=== PATIENT | male | born 1985 | race Caucasian/White ===

== ENCOUNTER 2021-01-08 13:59 | Emergency (ER) | payer OTHER, SELFPAY ==
--- NOTE | ~2021-01-08 | XR_ITS ---
EXAMINATION: XR abdomen/kub 1V DATE: 01/08/2021 16:01 INDICATION: Low abdominal pain. TECHNIQUE: A supine view of the abdomen on 2 radiographs was obtained. COMPARISON: None. FINDINGS: There are no dilated loops of bowel. There is a moderate volume of stool in the colon. Ther e is no visible urolithiasis. IMPRESSION: 1. Normal bowel gas pattern. Reviewed, dictated and finalized at location A.
[2021-01-08 14:13] VITALS: BP 135/57; PULSE 90; RESP 20; TEMP 37.2; O2SAT 99
--- NOTE | 2021-01-08 15:19 | ED.GENADULT ---
HPI - General Adult General Chief complaint: Urogenital-Male Stated complaint: testicular discomfort Time Seen by Provider: 01/08/21 15:19 Source: patient Mode of arrival: ambulatory Limitations: no limitations History of Present Illness HPI narrative: 35-year-old male patient presents to the [facility] with complaints of scrotal discomfort for the past 3 days. Denies any penile discharge or pain with urination. Denies any concerns for STDs or STIs. Patient states he is in a monogamous relationship. Patient denies any low back pain, fevers, body aches or chills. Denies any nausea, vomiting or diarrhea. Patient states he does have pain to the suprapubic area that radiates down both sides of the groin into the scrotum. Related Data Home Medications Medication Instructions Recorded Confirmed bupropion HCl 100 mg PO BID 01/08/21 01/08/21 citalopram 20 mg PO DAILY 01/08/21 01/08/21 Allergies Allergy/AdvReac Type Severity Reaction Status Date / Time No Known Allergies Allergy Verified 01/08/21 14:22 Review of Systems Review of Systems: Narrative: CONSTITUTIONAL: Denies fever, chills, or sweats. EYES: Denies visual changes, redness, or discharge. ENT: Denies rhinorrhea, congestion, sore throat, or otalgia. CARDIOVASCULAR: Denies chest pain, palpitations, or edema. RESPIRATORY: Denies cough or dyspnea. GASTROINTESTINAL: Denies abdominal pain, nausea, vomiting, or diarrhea. GENITOURINARY: Denies dysuria or hematuria. Positive bilateral scrotal pain more so to the right than the left SKIN: Denies rash or itching. MUSCULOSKELETAL: Denies back pain, joint pain, or myalgia. NEUROLOGIC: Denies headache, numbness, or weakness. PSYCHIATRIC: Denies anxiety or depression. PMFSH Comments At the time of my signature I agree with nursing past medical history, surgical, social, and family history. There is no relevant family history pertinent to the presenting complaint. Exam Narrative: Exam Narrative: GENERAL: Well-appearing, well-nourished, and in no acute distress. HEAD: Normocephalic, atraumatic. EYES: PERRLA and EOMI. ENT: Nares clear, no rhinorrhea or epistaxis. Mucous membranes moist. NECK: Supple. No lymphadenopathy CHEST: Clear to auscultation. No respiratory distress. HEART: Regular rate and rhythm. No murmur heard. Normal peripheral pulses. ABDOMEN: Soft, nontender, nondistended, normal active bowel sounds. EXTREMITIES: Normal range of motion. No edema. : Normal external genitalia, uncircumcised male. No lesions or rash present. Urinary meat us clear. Foreskin retracts easily. Testicles do look slightly swollen the right testicle is higher than the left testicle. There is some tenderness around palpation to the right testicle. No warmth noted. The testicles were eliminated no obvious masses noted at this time. SKIN: Warm, dry, no rash. NEURO: No focal deficits. Alert and oriented x3. Course Reevaluation(s) Reevaluation #1: Reevaluated patient after his KUB had resulted. Notified him that there is no evidence of a kidney stone at this time. Discussed with him I highly suspect that he might have possibly an epididymitis infection. Discussed with him we are can go ahead and treat him with antibiotics today he will get one antibiotic as a shot in the clinic today we will send him home with an oral antibiotic. Discussed with him that if his symptoms do not resolve or have worsening symptoms I highly recommend that he follow-up with his primary care doctor for a possible ultrasound of the testicles. Patient verbalized understanding of this denies any other questions or concerns at this time. Date: 01/08/21 Time: 16:31 Vital Signs Vital signs: Vital Signs Temperature 37.2 C 01/08/21 14:13 Pulse Rate 90 01/08/21 14:13 Respiratory Rate 20 01/08/21 14:13 Blood Pressure 135/57 L 01/08/21 14:13 Pulse Oximetry 99 01/08/21 14:13 Temperature 37.2 C 01/08/21 14:13 Pulse Rate 90 01/08/21 14:13 Respirato
[2021-01-08] MEDS: cefTRIAXone 250 MG VIAL IM (16:36)
== END 2021-01-08 16:59 | disposition home or self-care (01) ==
PROVIDERS: Emergency Provider Nurse Practitioner Family
DX: N45.1 Epididymitis (principal); F32.9 Major depressive disorder, single episode, unspecified
CPT/HCPCS: 74018; 81003; 87086; 87088; 96372; 99213; G0463; J0696

== ENCOUNTER 2025-03-16 10:23 | Emergency (ER) | payer OTHER, SELFPAY ==
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
--- OUTSIDE RECORDS SUMMARY | 2024-05-28 08:34 | XMS_ITS | Continuity of Care Document ---
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 Role Phone Sophia Butts MD Unavailable [...] Date Pt inelig neg scrn nahomi OFFICE ECCRC-YOD-LHEKFFMT BODY MASS INDEX DOCD SYST BP LT 130 MM HG DIAST BP < 80 MM HG GENERAL HEALTH PANEL LIPID PANEL ROUTINE VENIPUNCTURE PREVENTATIVE-EST: 18-39 BODY MASS INDEX DOCD SYST BP LT 130 MM HG DIAST BP < 80 MM HG Brief Emotional/Behavioral A ssessment, With Scoring/Doct, Per Stndrd Instrument Pt inelig neg scrn nahomi OFFICE QSURU-OQR-DNCXRTZH BODY MASS INDEX DOCD SYST BP LT [...] URINALYSIS W MICROSCOPIC (UA) ROUTINE VENIPUNCTURE OFFICE WORIO-XMO-OZPDJMTY BODY MASS INDEX DOCD SYST BP LT 130 MM HG DIAST BP 80-89 MM HG Pt inelig neg scrn depres Brief Emotional/Behavioral A ssessment, With Scoring/Doct, Per Stndrd Instrument PREVENTATIVE-EST: BODY MASS INDEX DOCD SYST BP LT 130 MM HG DIAST BP < 80 MM HG GENERAL HEALTH PANEL LIPID PANEL ROUTINE VENIPUNCTURE OFFICE WONIU-UDD-KOGCUOBI BODY MASS INDEX DOCD SYST BP LT 130 MM HG DIAST BP 80-89 MM HG OFFICE FEYUL-JCR-XCIGXTHD OFFICE SYPUZ-TON-XVPIBLAZ BODY MASS INDEX DOCD SYST BP LT [...] Diagnoses Date Provider Providers Copied on Encounter [facility], [address], [place], [place], [address] , tel: [phone] [facility] No Information [address], [facility] [address], [place], [place], [address], [place]. tel:[phone] OFFICE EDNMC-QZT-ST PANDED [facility], [address], [place], [place], [address] , tel:[phone] [facility] throat (chief complaint) Body mass index [BMI] 30.0-30.9, adultAcute laryngitis 4 Daphne Luo. [address], [facility] [address], [place], [place], [address], [place]. tel:[phone] Referring Provider: Sophia Butts, [address] [facility] [address], [place], [address] . tel:[phone] PREVENTATIVE -EST: [facility], [address], [place], [place], [address] , tel:[phone] [facility] preventive exam (chief complaint) Body mass index [BMI] 30.0-30.9, adultEncounter for general adult medical examination without abnormal findingsSmoker 4 Clara Cortes. [address], [address], [place], [place], [address], [place]. tel:[phone] Referring Provider: Sophia Butts, [address], [place], [address] . tel:[phone] OFFICE ZNSMX-GIY-HJ PANDED [facility], [address], [place], [place], [address] , tel: [phone] [facility] Chronic Conditions (chief complaint) Body mass index [BMI] 30.0-30.9, adultObstructive sleep apnea (adult) (pediatric)Major depressive disorder, single episode, unspecified 3 Clara [address], [address], [place], [place], [address], [place]. tel:[phone] Referring Provider: Sophia Butts, [address], [place], [address] . tel:[phone] [facility], [address], [place], [place], [address] , [place] tel: [phone] [facility] Obstructive sleep apnea (adult) (pediatric) [address] Clara [address], [address], [place], [place], [address], [place]. tel:[phone] PREVENTATIVE -EST: 18-39 [facility], [address], [place], [place], [address] , [place] tel: [phone] [facility] preventive exam (chief complaint) Body mass index [BMI] 30.0-30.9, adultEncounter for adult health check-upFatigue, unspecified typeElevated LFTs 2 Clara Cortes. [address], [address], [place], [place], [address], [place]. tel:[phone] Referring Provider: Sophia Butts, [address], [place], [address] . tel:[phone] PREVENTATIVE -EST: 18-39 [facility], [address], [place], [place], [address] , [place] tel: [phone] [facility] preventive exam (chief complaint) Body mass index (BMI) 32.0-32.9, adultPhysical exam 1 Clara [address], [address], [place], [place], [address], [place]. tel:[phone] Referring Provider: Sophia Butts, [address], [place], [address] . tel:[phone] [facility], [address], [place], [place], [address] , [place] tel: [phone] [facility] Orchitis 1 Clara Cortes. [address], [address], [place], [place], [address], [place]. tel:[phone] Referring Provider: Sophia Butts, [address], [place], [address] . tel:[phone] OFFICE AOEAB-GAL-ZK PANDED [facility], [address], [place], [place], [address] , [place] tel: [phone] [facility] UC F/u (chief complaint) Pain in both testiclesLeft testicular painBody mass index (BMI) 32.0-32.9, adult 1 Cand[address], [address], [place], [place], [address], [place]. tel:[phone] Referring Provider: [address], [place], [address] . tel:[phone] PREVENTATIVE -EST: 18-39 [facility], [address], [place], [place], [address] , [place] tel: [phone] [facility] preventive exam (chief complaint)Ch ronic Conditions (chief complaint) Encounter for adult health check-upBody mass index (BMI) 30.0-30.9, adultMajor depressive disorder, single episode, unspecifiedWeigh t loss 0 Clara Cortes. [address], [address], [place], [place], [address], . tel:[phone] Referring Provider: [address], [place], [address] . tel:[phone] OFFICE CAJQH-PTD-VP [employer], [address], [place], [place], [address] , tel: [phone] [facility] Acute (chief complaint) Body mass index (BMI) 32.0-32.9, adultCough 0 Candida Merr[address]. [address], [address], [place], [place], [address], [place]. tel:[phone] Referring Provider: Sophia Butts, [address], [place], [address] . tel:[phone] OFFICE ILGXI-LKR-RU [employer], [address], [place], [place], [address] , [place] tel: [phone] [facility] Erectile dysfunction (chief complaint) Erectile dysfunction of organic origin 9 [facility]. [address], [address], [place], [address], [place]. tel:[phone] Referring Provider: [address], [place], [address] . tel:[phone] OFFICE CZWAB-XFX-OX [employer], [address], [place], [place], [address] , tel: [phone] [facility] uri sx (chief complaint) Body mass index (BMI) 32.0-32.9, adultUpper respiratory tract infection, unspecified type 9 Daphne Luo. [address], [address], [place], [place], [address], [place]. tel:[phone] Referring Provider: Sophia Butts, [address], [place], [address] . tel:[phone] PREVENTATIVE -EST: 18-39 [facility], [address], [place], [place], [address] , [place] tel: [phone] [facility] preventive exam (chief complaint) Body mass index (BMI) 32.0-32.9, adultEncounter for adult health check-upElevated LFTs 9 Clara Cortes. [address], [address], [place], [place], [address], [place]. tel:[phone] Referring Provider: [address], [place], [address] . tel:[phone] [facility], [address], [place], [place], [address] , [place] tel: [phone] [facility] rt hand (chief complaint) Body mass index (BMI) 33.0-33.9, adultInjury of right hand, initial encounter 9 Daphne Luo. [address], [address], [place], [place], [address], [place]. tel:[phone] Referring Provider: [address], [place], [address] . tel:[phone] [facility], [address], [place], [place], [address] , [place] [phone] [facility] Erectile dysfunction of organic origin 8 Jimi Hennessy. [address], [facility] [address], [place], [address], [place]. tel:[phone] Referring Provider: [address], [place], [address] . tel:[phone] [facility], [address], [place], [place], [address] , tel: [phone] [facility] Acute midline low back pain with bilateral sciaticLumbago with sciatica, right side 8 Clara Cortes. [address], [address], [place], [place], [address], [place]. tel:[phone] Referring Provider: Sophia Butts, [address], [place], [address] . tel:[phone] [facility], [address], [place], [place], [address] , tel: [phone] [facility] Bilateral low back pain without sciatica, unspecified chronicity 8 Daphne Luo. [address], [address], [place], [place], [address], [place]. tel:[phone] Referring Provider: Sophia Butts, [address], [place], [address] . tel:[phone] [facility], [address], [place], [place], [address] , [place] tel: [phone] [facility] Swelling of knee joint, left 7 Serna Puja. [address], [address], [place], [place], [address], [place]. tel:[phone] Referring Provider: Sophia Butts, [address], [place], [address] . tel:[phone] [facility], [address], [place], [place], [address] , tel: [phone] [facility] Elevated LFTs 7 Clara Cortes. [address], [address], [place], [place], [address], [place]. tel:[phone] Referring Provider: Sophia Butts, [address], [place], [address] . tel:[phone] [facility], [address], [place], [place], [address] , tel: [phone] [facility] Erectile dysfunction due to arterial insufficiency Jimi Hennessy. [address], [address], [address], . tel:[phone] Referring Provider: Sophia Butts, [address], [place], [address] . tel:[phone] [facility], [address], [place], [place], [address] , [place] tel: [phone] [facility] Physical examSmoker Clara Cortes. [address], [address], [place], [place], [address], [place]. tel:[phone] Referring Provider: Sophia Butts, [address], [place], [address] . tel:[phone] [facility], [address], [place], [place], [address] , tel: [phone] [facility] Major depressive disorder, single episode, unspecified Clara Cortes. [address], [address], [place], [place], [address], [place]. tel:[phone] [facility], [address], [place], [place], [address] , tel: [phone] [facility] Major depressive disorder, single episode, unspecifiedMale sexual dysfunction 7 Navdeep Grijalva. [address] [facility], [facility] [address], [place], [place], [address], . tel:[phone] Referring Provider: Sophia Butts, [address], [place], [address] . tel:[phone] [facility], [address], [place], [place], [address] , [place] tel: [phone] [facility] Male sexual dysfunctionMajor depressive disorder, single episode, unspecifiedNicot ine dependence, unspecified, uncomplicated Sep-2 8-201 6 Clara Cortes. [facility] [address], [address], [place], [place], [address], . tel:[phone] Referring Provider: Sophia Butts, [address], [place], [address] . tel:[phone] [facility], [address], [place], [place], [address] , tel: [phone] [facility] Major depressive disorder, single episode, unspecifiedMale sexual dysfunction Raimundo Breen. [facility] [address] , [address], [place], [place], [address], [place]. tel:[phone] Referring Provider: Sophia Butts, [address], [place], [address] . tel:[phone] [facility], [address], [place], [place], [address] , tel: [phone] [facility] Major depressive disorder, single episode, unspecified Navdeep Mahersy. [facility] [facility], [facility] [address], [place], [address], . tel:[phone] Referring Provider: Sophia Butts, [address], [place], [address] . tel:[phone] [facility], [address], [place], [place], [address] , tel: [phone] [facility] Physical exam 6 Clara [address], [address], [place], [place], [address], [place]. tel:[phone] Referring Provider: [address], [place], [address] . tel:[phone] [facility], [address], [place], [place], [address] , tel: [phone] [facility] Routine [facility]201 5 Clara Cortes. [address], [address], [place], [place], [address], [place]. tel:[phone] Referring Provider: Sophia Butts, [address], [place], [address] . tel:[phone] [facility], [address], [place], [place], [address] , [place] tel: [phone] [facility] Hemorrhoid 0-201 5 Clara Cortes. [address], [address], [place], [place], [address], [place]. tel:[phone] Referring Provider: Sophia Butts, [address], [place], [address] . tel:[phone] [facility], [address], [place], [place], [address] , [place] tel: [phone] [facility] Ankle pain 2-201 5 Clara Cortes[address], [address], [place], [place], [address], [place]. tel:[phone] Referring Provider: Sophia Butts, [address], [place], [address] . tel:[phone] [facility], [address], [place], [place], [address] , [place] tel: [phone] [facility] Routine general medical examination at a [facility] ed glucose 4 Clara Cortes. [address], [address], [place], [place], [address], [place]. tel:[phone] Referring Provider: Sophia Butts, [address], [place], [address] . tel:[phone] [facility], [address], [place], [place], [address] , [place] tel: [phone] [facility] Major depressionSmoker Back pain 0 4 Clara Cortes. [address], [address], [place], [place], [address], [place]. tel:[phone] Referring Provider: Sophia Butts, [address] [facility] [address], [place], [address] . tel:[phone] [facility], [address], [place], [place], [address] , tel: [phone] [facility] Major depressive affective disorder, single episode, unspecified degreeTobacco Abuse 3 Clara Cortes. [address], [address], [place], [place], [address], [place]. tel:[phone] Referring Provider: Sophia Butts, [address] [facility] [address], [place], [address] . tel:[phone] [facility], [address], [place], [place], [address] , tel: [phone] [facility] Major depressionSmoker 3 Clara Cortes. [address], [facility] [address], [place], [place], [address], [place]. tel:[phone] Referring Provider: Sophia Butts, [address] [facility] [address], [place], [address] . tel:[phone] [facility], [address], [place], [place], [address] , tel: [phone] [facility] Routine general medical examination at a health care facilityMajor depressive affective disorder, single episode, unspecified degreeRoutine general medical examination at a health care facilityMajor depressive affective disorder, single episode, unspecified degreeNEED FOR PROPHYLACTIC VACCINATION WITH COMBINED DIPHTHERIA-TETAN US-PERTUSSIS (DTP) (DTAP) VACCINERoutine general medical examination at a health care facilityScreenin g for lipoid disorders 3 Clara Cortes. [address], [address], [place], [place], [address], [place]. tel:[phone] Referring Provider: [address] [address], [place], [address] . tel:[phone] Family History Family Member Type Diagnosis Age At Onset Father Problem (finding) Stomach CA Mother Problem (finding) depression Immunizations Vaccine Date Status Comments Fluzone Quad, preservative free, split virus, 0.5mL dosage administered Source: New Immuniza tion Record Tdap administered Source: Other P rovider Tdap (Adacel r) administered Source: New Immunization Record Payers Payer name Insurance type Covered democrat ID Authoriza tion(s) [employer] PPO CI [id number] [facility] ACCESS CHOICE BL [id number] Social History Type Description Quantity Date Captured [...] counseling completed Referral Referred To: [place], [id number] Ordered: CPAP (continuous positive airway pressure) ordered Referral Ordered: RUQ US (right upper quadrant ultrasound) Appointment date/timeframe: 04/05/2022 ordered Referral Referred To: [id number] [place], [phone] Ordered: Home sleep study ordered Referral Ordered: [...] by son, doing well. 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 Smoker: quit 03/03 [...] on the day. +daytime somnolence, takes naps. [place] score 11 preventive exam preventive exam (comments) [...] former tobacco user. F/u Pt went to [facility] with mild to moderate testicular discomfort. [...] for STIs.UC he went to was in [place] run by [facility], will request records.No fevers, chills. Notes he's [...] (BMI) 30.0-30.9, adult -cbc, cmp, tsh, lipi kh-FMSc-Slovcvvh: Tetanus up to date. COVID and Fluvax [...] Fatigue, unspecified type -cbc, cmp, tsh, lipi an-VGRr-Uuvnemps: Tetanus up to date, declines covid vaccine: [...] f/u if sx persist despite improvement in leext-GCYo-Jxejicxa: Tetanus up to date, declines covid: Declines [...] to Weight loss -cbc, cmp, tsh, lipi ed-IKYw-Umuimrvv: Tetanus up to date. education re: Fluvax this season: he plans to get at [facility]-We discussed weight loss, unexplained, though he has [...] (BMI) 32.0-32.9, adult -cbc, cmp, tsh, lipi lv-EDGc-Utwnhdut: Tetanus up to date-healthy diet and Exercise, [...]
[2025-03-16 10:30] VITALS: BP 118/64; PULSE 70; RESP 20; TEMP 36.6; O2SAT 98
--- NOTE | 2025-03-16 10:47 | ED_ITS ---
HPI - Wound/Laceration General Chief Complaint: Wound/Laceration Stated Complaint: lac to left palm of hand Time Seen by Provider: 03/16/25 10:25 Source: patient Mode of arrival: ambulatory Limitations: no limitations History of Present Illness HPI narrative: Ricky is a 39-year-old male patient presenting to the clinic today with complaints of a laceration to the left palm/hand. He reports he accidentally stabbed himself with a garden kacey. Bleeding is controlled. Tetanus is unknown. Has full range of motion of his thumb. Related Data Home Medications ?Medication ?Instructions ?Recorded ?Confirmed ?Last Taken ?Type citalopram 20 mg tablet 20 mg PO DAILY 01/08/2112/14 Unknown History buspirone 15 mg tablet mg 03/16/25 Unknown History Allergies Allergy/AdvReac Type Severity Reaction Status Date / Time No Known Allergies Allergy Verified 03/16/25 11:09 Review of Systems Review of Systems: Pertinent positives per HPI. Patient denies any fever, chills, rash, headache, visual changes, dizziness, cough, runny nose, sore throat, shortness of breath, chest pain, palpitations, nausea, vomiting, diarrhea, constipation, abdominal pain, or any urinary issues. PMFSH Comments At the time of my signature, I reviewed and agree with the nursing past medical, surgical, social, and family history. There is no relevant family history pertinent to the patient complaint. Exam Narrative: General: Well-developed, well nourished, in no apparent distress Head: Normocephalic, atraumatic. Cardio: Regular rate and rhythm, s1 and s2 normal, no murmur appreciated. Resp: Clear to auscultation bilaterally, no rhonchi, rales, wheezing or rubs. Integumentary: [place], warm, and dry, gaped 1.5 senna vertical laceration to the right palm-radial side, full range of motion of the right thumb-mild swelling around the wound, no obvious sign of foreign body in the wound. Course Course Emergency Course: Portions of this record may have been created with voice recognition software. Level of Care: Express Care Visit Vital Signs Vital signs: Vital Signs Temperature 36.6 C 03/16/25 10:30 Pulse Rate 70 03/16/25 10:30 Respiratory Rate 20 03/16/25 10:30 Blood Pressure 118/64 03/16/25 10:30 Pulse Oximetry 98 03/16/25 10:30 Oxygen Delivery Room Air 03/16/25 10:30 Temperature 36.6 C 03/16/25 10:30 Pulse Rate 70 03/16/25 10:30 Respiratory Rate 20 03/16/25 10:30 Blood Pressure 118/64 03/16/25 10:30 Pulse Oximetry 98 03/16/25 10:30 Oxygen Delivery Room Air 03/16/25 10:30 Vital signs reviewed Procedures Laceration Laceration 1: Date: 03/16/25 Site: hand Side (If applicable): left Size (cm): 1.5 Description: linear Depth: simple, single layer Local Anesthetic: lidocaine 1% Amount of anesthesia used (mL): 2 Pre-repair: wound explored, irrigated and irrigated extensively ====== Skin Level ====== Skin layer closed with: nylon Size (cm): 5-0 Number of sutures: 5 Technique: simple, interrupted ====== Subcutaneous Layer ====== ====== Muscle Layer ====== ====== Tendon Layer ====== Dressing: Verbal consent obtained for laceration repair. Risk and benefits explained and patient voiced understanding. Area was cleansed with Techni care and a 27 gauge needle was then used to instill (2) ml of 1% lidocaine without epi into the wound edges. Area was prepped and draped using sterile technique. A 5-0 suture on a p needle was used to place (5) interrupted sutures bringing the wound edges together- well approximated. Patient tolerated procedure well. Triple antibiotic ointment and Band-Aid was applied. MDM - Wound/Laceration MDM Narrative Medical decision making narrative: At the time of visit patient is resting comfortably on the exam table. Patient appears to be nontoxic. Complaints of a laceration to the left palm/hand. He reports he accidentally stabbed himself with a garden kacey. Bleeding is controlled. Tetanus is unknown. Has full range of motion of his thumb. On exam patient has a gaped 1.5 senna vertical laceration to the right palm-radial side, full range of motion of the right thumb-mild swelling around the wound, no obvious sign of foreign body in the wound. Procedures: Laceration repair was performed using 5 0 suture on a P3 needle. Wound irrigated and washed with antiseptic wound wash and Betadine. No obvious sign of foreign body. Five interrupted sutures were placed bringing wound edges well approximate. Bleeding controlled. Patient tolerated procedure well. Plan: Patient has a laceration to the left palm-radial side. Five interrupted sutures were placed bringing wound edges well approximate. Patient tolerated well. Wound was irrigated well. No sign of foreign body. Will send in prescription for cephalexin as the patient was a dirty wound. Sutures out 7 days. Supportive measures were discussed with the patient and they voiced understanding discharge instructions and agrees to treatment plan. Return precautions reviewed Differential Diagnosis Differential diagnosis: Likely laceration, abscess, abrasion and avulsion of skin Discharge Plan Discharge Clinical Impression: Hand laceration Qualifiers: Encounter type: initial encounter Foreign body presence: without foreign body Laterality: left Qualified Code(s): S61.412A - Laceration without foreign body of left hand, initial encounter Patient Disposition: Home Condition: Stable Instructions: Antibiotic Form, Laceration (ED) Additional Instructions: Tetanus was given in the clinic today. Take cephalexin as prescribed Leave bandage on for 24 hours then may remove and apply band aide covering as needed. Keep wound clean and dry Wash wound daily with soap and water. Skin sutures out in 7 days. Watch for signs and symptoms of infection- redness, streaking, swelling, purulent discharge, or increase in pain. Follow up with your PCP for suture removal or return to the Express care. Patient Language: Hungarian Prescriptions: New cephalexin 500 mg capsule 500 mg PO Q12H 7 Days Qty: 14 0RF No Action citalopram 20 mg Tablet 20 mg PO DAILY buspirone 15 mg tablet Follow-up/Referrals: PHYSICIAN NOT ON STAFF,NONSTAFF [Primary Care Provider] Time of Disposition: 11:15 Quality NIHSS Nursing Documentation ED NIHSS nursing documentation: reviewed/agree
[2025-03-16] MEDS: TETANUS,DIPHTHERIA,AC PERTUSSIS ADULT (0.5 ML) BOOSTRIX IM (10:50)
--- OUTSIDE RECORDS SUMMARY | 2025-03-16 10:52 | XMS_ITS | Clinical Summary ---
Author Organization [facility] e Address [address] [place] [address] Care Team Providers Care Stucco Applicator Name Role Phone Kvng Cabral MD Primary Care Provider [phone] Allergies No known active allergies Medications citalopram (CELEXA) 40 mg Oral tabletIndication s:Depression Take 1 Tab by mouth daily. 90 Tab 3 07/25/2011 Active azithromycin (ZITHROMAX) 250 mg Oral tabletIndication s:Acute bronchitis Take 2 tabs the first day and 1 tab days 2-5 1 Package 0 05/30/2012 Active escitalopram (LEXAPRO) 20 mg Oral tabletIndication s:Depression Take 1 Tab by mouth daily. 90 Tab 1 08/08/2012 Active Active Problems Problem Noted Date Diagnosed Date Depression 06/03/2009 Encounters Date Type Department Care Team Description 02/09/2025 Orders Only [facility] [place] [address] [place] [id number] Marge Barraza APN Attention deficit hyperactivity disorder (ADHD), predominantly inattentive type (Primary Dx) from Last 3 Months Family History Medical History Relation Name Comments Cancer Father stomach Healthy Mother Relation Name Status Comments Father Maternal Grandfather Maternal Grandmother Mother Alive Paternal Grandfather Paternal Grandmother Sister Alive Social History Tobacco Use Types Packs/Day Years Used Date Smoking Tobacco: Every Day Cigarettes Smokeless Tobacco: Never Alcohol Use Standard Drinks/Week Comments No 0 (1 standard drink = 0.6 oz pur e alcohol) Sex and Gender Information Value Date Recorded Sex Assigned at Not on file Legal Sex Male 5:33 AM CLINICAL SUPERVISOR Gender Identity Not on file Sexual Orientation Not on file Occupation Industry Job Start Date Job End Date Not on file Not on file Not on file Not on file Last Filed Vital Signs Vital Sign Reading Time Taken Comments Blood Pressure 115/79 07/04/2020 5:08 PM CLINICAL SUPERVISOR Pulse 77 07/04/2020 5:08 PM CLINICAL SUPERVISOR Temperature 36.3 C (97.3 F) 07/04/2020 5:08 PM CLINICAL SUPERVISOR Respiratory Rate 17 05/30/2012 3:50 PM CLINICAL SUPERVISOR Oxygen Saturation 98% 07/04/2020 5:08 PM CLINICAL SUPERVISOR Inhaled Oxygen Concentration - - Weight 85.7 kg (189 lb) 05/30/2012 3:50 PM CLINICAL SUPERVISOR Height 188 cm (6' 2) 05/30/2012 3:50 PM CLINICAL SUPERVISOR Body Mass Index 24.27 05/30/2012 3:50 PM CLINICAL SUPERVISOR Plan of Treatment Health Maintenance Due Date Last Done Comments DTAP/TDAP/TD VACCINES (1 - Tdap) 09/22/2003 HEPATITIS B VACCINES (1 of 3 - 19+ 3-dose series) 09/12 HPV VACCINES (1 - 3-dose SCDM series) 09/22/2011 INFLUENZA VACCINE (#1) 2025 Insurance [facility] BLUE [facility]ESS [facility] Care Teams Stucco Applicator Relationship Specialty Start Date End Date Kvng Cabral MD [address] [place] [address] PCP - General 11/07/07
--- OUTSIDE RECORDS SUMMARY | 2025-03-16 10:52 | XMS_ITS | Clinical Summary ---
Author Organization [facility] Address [address] [place] [address] Care Team Providers Care Outside Machinist Supervisor Name Role Phone Sophia Elizabeth MD Primary Care Provider Source Comments [facility],non-owned Affiliates and Associated Physician Practices is amultiple site organization consisting of ambulatory clinics and hospital sitesin [place], [place] and [place]. This disclosure is being madepursuant to the Care Everywhere program and may not contain all information available regarding this patient. Last updated 18.[facility] Allergies No known active allergies Medications * Be aware that medications may not be up to date on this document. Alwaysverify current medications with the patient. oxyCODONE-aceta minophen (PERCOCET) 5-325 MG tablet Take 1 Tab by mouth every 4 hours as needed for Pain 30 Tab 0 03/11/2015 Active methylPREDNISol one (MEDROL DOSEPAK) 4 MG tablet Take by mouth as directed 21 Each 02/06/2018 Active diazePAM (VALIUM) 5 MG tablet Take 1 tablet by mouth 3 times daily as needed for Spasms 12 tablet 02/06/2018 Active ibuprofen (MOTRIN) 400 MG tablet Take 1 tablet by mouth every 6 hours as needed for Pain 30 tablet 06/04/2020 Active HYDROcodone-brooklyn taminophen (NORCO) 5-325 MG tablet Take 1 tablet by mouth every 6 hours as needed for Pain 6 tablet 06/04/2020 Active Social History Tobacco Use Types Packs/Day Years Used Date Smoking Tobacco: Every Day Cigarettes Last attempted to quit: 01/12/2014 Smokeless Tobacco: Never Alcohol Use Standard Drinks/Week Comments Yes 0 (1 standard drink = 0.6 oz pur e alcohol) occ Sex and Gender Information Value Date Recorded Sex Assigned at Not on file Legal Sex Male 9:36 AM CDT Gender Identity Not on file Sexual Orientation Not on file Last Filed Vital Signs Vital Sign Reading Time Taken Comments Blood Pressure 138/59 06/04/2020 4:46 AM PRIVATE BRANCH EXCHANGE OPERATOR Pulse 88 06/04/2020 4:46 AM PRIVATE BRANCH EXCHANGE OPERATOR Temperature 36.8 C (98.2 F) 06/04/2020 3:25 AM PRIVATE BRANCH EXCHANGE OPERATOR Respiratory Rate 22 06/04/2020 4:46 AM PRIVATE BRANCH EXCHANGE OPERATOR Oxygen Saturation 95% 06/04/2020 4:46 AM PRIVATE BRANCH EXCHANGE OPERATOR Inhaled Oxygen Concentration - - Weight 117.9 kg (260 lb) 02/06/2018 10:27 AM CDT Height 188 cm (6' 2) 02/06/2018 10:27 AM CDT Body Mass Index 33.38 02/06/2018 10:27 AM CDT Plan of Treatment Health Maintenance Due Date Last Done Comments LIPID TESTING 1984 HIV SCREENING 09/22/1999 HEPATITIS C SCREENING 09/17/2002 DTAP/TDAP/TD VACCINES (1 - Tdap) 09/22/2003 HEPATITIS B VACCINE (1 of 3 - 19+ 3-dose series) 09/22/2003 HPV VACCINE (1 - 3-dose SCDM series) 09/22/2011 COVID-19 VACCINE (1 - 2023-2 5 season) 2024 DEPRESSION SCREENING 07/15/2024 INFLUENZA VACCINE (#1) 2025 ZOSTER VACCINE (1 of 2) 2034 HIB VACCINE Aged Out No longer eligi ble based on patient's age to complete this topic MENINGOCOCCAL (Group B) VACC INE SHARED DECISION-MAKING Aged Out No longer eligibl e based on patient's age to complete this topic MENINGOCOCCAL GROUPS A/C/Y/W VACCINE Aged Out No longer eligible b ased on patient's age to complete this topic PNEUMOCOCCAL VACCINE Aged Out No long er eligible based on patient's age to complete this topic Medical Devices Implanted Type Area Linter Tender Device Identifier Shelf Expiration Date Model / Serial / Lot 7.0 X 60mm Muc Screw Implanted:Qty: 1 on 03/11/2015 by Cristopher Jonas DPM at [facility] Left: Foot [employer] [id number] / / [facility] Thrd 4.3 X 50mm Implanted:Qty: 1 on 03/11/2015 by Cristopher Jonas DPM at [facility] Left: Foot [employer] [id number] / / Biofoam Dodd Wedge 18mm X 18 Mm Implanted:Qty: 1 on 03/11/2015 by Cristopher Jonas DPM at [facility] Left: Foot 08/11/2022 [id number] / / [id number] 4.5 X 14mm Biocomposite Corkscrew Ft Implanted:Qty: 1 on 03/11/2015 by Cristopher Jonas DPM at [facility] Left: Foot 07/11/2019 [id number] / / [id number] 4.5 X 14mm Biocomposite Corkscrew Ft Implanted:Qty: 1 on 03/11/2015 by Cristopher Jonas DPM at [facility] Left: Foot 07/11/2016 [id number] / / [id number] [facility] Thrd 4.3 X 48mm Implanted:Qty: 1 on 08/26/2015 by Cristopher Jonas DPM at [facility] Right: Foot [employer] [id number] / / Biofom Dodd Wedge 18x 18mm H: 8mm Implanted:Qty: 1 on 08/26/2015 by Cristopher Jonas DPM at [facility] Right: Foot [employer] 04/16/2023 [id number] / / [id number] Suture [place] Biocomposite Corkscrew Implanted:Qty: 1 on 08/26/2015 by Cristopher Jonas DPM at [facility] Right: Foot [employer] 07/14/2017 [id number] / / [id number] Single Trocar Wire [id number] Implanted:Qty: 2 on 08/26/2015 by Cristopher Jonas DPM at [facility] Right: Foot [id number] / / K_Wire [id number] Implanted:Qty: 2 on 08/26/2015 by Cristopher Jonas DPM at [facility] Right: Foot [id number] / / [facility] Thrd 4.3 X 50mm Implanted:Qty: 1 on 08/26/2015 by Cristopher Jonas DPM at [facility] Right: Foot [employer] [id number] / / Explanted Type Area Linter Tender Device Identifier Shelf Expiration Date Model / Serial / Lot 2.5 Kwire Implanted:Qty: 1 Explanted:Qty: 1 on 03/11/2015 by Cristopher Jonas DPM at [facility] Left: Foot [id number] / / Guidewire 1.6 Implanted:Qty: 1 Explanted:Qty: 1 on 03/11/2015 at [facility] Left: Foot [id number] / / [facility] Thrd 4.3 X 50mm Explanted:Qty: 1 on 08/26/2015 by Cristopher Jonas DPM at [facility] Right: Foot [employer] [id number] / / Insurance [facility] Care Teams Outside Machinist Supervisor Relationship Specialty Start Date End Date Sophia Elizabeth MD PCP - General Internal Medicine 03/10/15
== END 2025-03-16 11:20 | disposition home or self-care (01) ==
PROVIDERS: Emergency Provider Nurse Practitioner Family
DX: S61.412A Laceration without foreign body of left hand, initial encounter (principal); W27.1XXA Contact with garden tool, initial encounter; Z23 Encounter for immunization; F41.9 Anxiety disorder, unspecified; F32.A Depression, unspecified
CPT/HCPCS: 12001; 90471; 90715; 99213; G0463; J2003

== ENCOUNTER 2025-03-23 08:20 | Emergency (ER) | payer OTHER, SELFPAY ==
[2025-03-23 08:31] VITALS: BP 150/84; PULSE 75; RESP 18; TEMP 36.6; O2SAT 100
--- OUTSIDE RECORDS SUMMARY | 2025-03-23 08:46 | XMS_ITS | Clinical Summary ---
Author Organization [facility] e Address [address] [address] Care Team Providers Care Extractions Technologist Name Role Phone Kvng Cabral MD Primary Care Provider [phone] Allergies No known active allergies Medications citalopram [...] Department Care Team Description 02/09/2025 Orders Only [facility] [place] [address] [place] [id number] Marge Barraza APN Attention deficit hyperactivity disorder [...] on file Legal Sex Male 5:33 AM HEAD WAITER/WAITRESS Gender Identity Not on file Sexual Orientation Not on file Occupation Industry Job Start Date Job End Date Not on file Not on file Not on file Not on file Last Filed Vital Signs Vital Sign Reading Time Taken Comments Blood Pressure 115/79 07/04/2020 5:08 PM HEAD WAITER/WAITRESS Pulse 77 07/04/2020 5:08 PM HEAD WAITER/WAITRESS Temperature 36.3 C (97.3 F) 07/04/2020 5:08 PM HEAD WAITER/WAITRESS Respiratory Rate 17 05/30/2012 3:50 PM HEAD WAITER/WAITRESS Oxygen Saturation 98% 07/04/2020 5:08 PM HEAD WAITER/WAITRESS Inhaled Oxygen Concentration - - Weight 85.7 kg (189 lb) 05/30/2012 3:50 PM HEAD WAITER/WAITRESS Height 188 cm (6' 2) 05/30/2012 3:50 PM HEAD WAITER/WAITRESS Body Mass Index 24.27 05/30/2012 3:50 PM HEAD WAITER/WAITRESS Plan of Treatment Health Maintenance Due Date Last Done Comments DTAP/TDAP/TD VACCINES (1 - Tdap) 09/22/2003 HEPATITIS B VACCINES (1 of 3 - 19+ 3-dose series) 09/12 HPV VACCINES (1 - 3-dose SCDM series) 09/22/2011 INFLUENZA VACCINE (#1) 2025 Insurance [facility] Care Teams Extractions Technologist Relationship Specialty Start Date End Date Kvng Cabral MD [address] [place] [address] PCP - General 11/07/07
--- OUTSIDE RECORDS SUMMARY | 2025-03-23 08:46 | XMS_ITS | Clinical Summary ---
Author Organization [facility] Address [address] [place] [address] Care Team Providers Care Structural Steel Shop Supervisor Name Role Phone Sophia Elizabeth MD Primary Care Provider Source Comments [facility],non-owned Affiliates and Associated Physician Practices is amultiple site organization consisting of ambulatory clinics and hospital sitesin [place], [place], [place] and [place]. This disclosure is being madepursuant to the Care Everywhere program and may not contain all information available regarding this patient. Last updated 18.[facility] Allergies No known active allergies Medications * [...] Comments Blood Pressure 138/59 06/04/2020 4:46 AM DATA CODER OPERATOR Pulse 88 06/04/2020 4:46 AM DATA CODER OPERATOR Temperature 36.8 C (98.2 F) 06/04/2020 3:25 AM DATA CODER OPERATOR Respiratory Rate 22 06/04/2020 4:46 AM DATA CODER OPERATOR Oxygen Saturation 95% 06/04/2020 4:46 AM DATA CODER OPERATOR Inhaled Oxygen Concentration - - Weight [...] VACCINE (1 - 3-dose SCDM series) 09/22/2011 DEPRESSION SCREENING 07/15/2024 COVID-19 VACCINE (1 - 2023-2 5 season) 2025 INFLUENZA VACCINE (#1) 2025 ZOSTER VACCINE (1 [...] this topic Medical Devices Implanted Type Area I O Psychologist Device Identifier Shelf Expiration Date Model / Serial / Lot 7.0 X 60mm Muc Screw Implanted:Qty: 1 on 03/11/2015 by Cristopher Jonas DPM at [facility] Left: Foot [employer] [id number] / / [facility] Thrd 4.3 X 50mm Implanted:Qty: 1 on 03/11/2015 by Cristopher Jonas DPM at [facility] Left: Foot [employer] [id number] / / Biofoam Dodd Wedge 18mm X 18 Mm Implanted:Qty: 1 on 03/11/2015 by Cristopher Jonas DPM at [facility] Left: Foot 08/11/2022 [id number] / / [id number] 4.5 X 14mm Biocomposite Corkscrew Ft Implanted:Qty: 1 on 03/11/2015 by Cristopher Jonas DPM at [facility] Left: Foot 07/11/2019 [id number] / / [id number] 4.5 X 14mm Biocomposite Corkscrew Ft Implanted:Qty: 1 on 03/11/2015 by Cristopher Jonas DPM at [facility] Left: Foot 07/11/2016 AR-8927BC / / [id number] [facility] Thrd 4.3 X 48mm Implanted:Qty: 1 on 08/26/2015 by Cristopher Jonas DPM at [facility] Right: Foot [employer] [id number] / / Biofom Dodd Wedge 18x 18mm H: 8mm Implanted:Qty: 1 on 08/26/2015 by Cristopher Jonas DPM at [facility] Right: Foot [employer] 04/16/2023 [id number] / / [id number] Suture [place] Biocomposite Corkscrew Implanted:Qty: 1 on 08/26/2015 by Cristopher Jonas DPM at [facility] Right: Foot [employer] 07/14/2017 AR-8927BC / / [id number] Single Trocar Wire [id number] Implanted:Qty: 2 on 08/26/2015 by Cristopher Jonas DPM at [facility] Right: Foot [id number] / / K_Wire [id number] Implanted:Qty: 2 on 08/26/2015 by Cristopher Jonas DPM at [facility] Right: Foot [id number] / / [facility] Thrd 4.3 X 50mm Implanted:Qty: 1 on 08/26/2015 by Cristopher Jonas DPM at [facility] Right: Foot [employer] [id number] / / Explanted Type Area I O Psychologist Device Identifier Shelf Expiration Date Model / Serial / Lot 2.5 Kwire Implanted:Qty: 1 Explanted:Qty: 1 on 03/11/2015 by Cristopher Jonas DPM at [facility] Left: Foot [id number] / / Guidewire 1.6 Implanted:Qty: 1 Explanted:Qty: 1 on 03/11/2015 at [facility] Left: Foot [id number] / / [facility] Thrd 4.3 X 50mm Explanted:Qty: 1 on 08/26/2015 by Cristopher Jonas DPM at [facility] Right: Foot [employer] [id number] / / Insurance [facility] Care Teams Structural Steel Shop Supervisor Relationship Specialty Start Date End Date Sophia Elizabeth MD PCP - General Internal Medicine 03/10/15
--- NOTE | 2025-03-23 09:07 | ED.GENADULT ---
HPI - General Adult General Chief complaint: Wound/Laceration Stated complaint: Suture Removal/Left Hand Source: patient Mode of arrival: ambulatory Limitations: no limitations History of Present Illness HPI narrative: Patient presents for suture removal from the left hand. He was evaluated here on 03/16/2025 after he cut himself with garden kacey. He denies any redness, drainage, or fever. Denies considerable pain. Related Data Home Medications ?Medication ?Instructions ?Recorded ?Confirmed ?Last Taken ?Type buspirone 15 mg tablet mg 03/16/25 Unknown History escitalopram oxalate 20 mg tablet mg 03/23/25 Unknown History Allergies Allergy/AdvReac Type Severity Reaction Status Date / Time No Known Allergies Allergy Verified 03/23/25 08:29 Review of Systems Review of Systems: CONSTITUTIONAL: Denies fever, chills, or sweats. EYES: Denies visual changes, redness, or discharge. ENT: Denies rhinorrhea, congestion, sore throat, or otalgia. CARDIOVASCULAR: Denies chest pain, palpitations, or edema. RESPIRATORY: Denies cough or dyspnea. GASTROINTESTINAL: Denies abdominal pain, nausea, vomiting, or diarrhea. GENITOURINARY: Denies dysuria or hematuria. SKIN: Reports healing laceration to the left hand MUSCULOSKELETAL: Denies back pain, joint pain, or myalgia. NEUROLOGIC: Denies headache, numbness, dizziness, or weakness. PSYCHIATRIC: Denies anxiety or depression. [facility] Past Medical History Medical History No pertinent past medical history Surgical History Surgical History No pertinent past surgical history Family History Family History Mother Family history non-contributory Social History Social History Substance use: never Gender identity (if verbalized by the patient): Male Spiritual care concerns: No Exam Narrative: GENERAL: Well-appearing, well-nourished, and in no acute distress. HEAD: Normocephalic, atraumatic. EYES: PERRLA and EOMI. ENT: Nares clear, no rhinorrhea or epistaxis. Mucous membranes moist. Oropharynx without tonsillar hypertrophy exudate or other lesions. Bilateral TMs pearly graham nonbulging NECK: Supple. No adenopathy or masses. No carotid bruits or JVD CHEST: Clear to auscultation. No respiratory distress. No wheezes rales or rhonchi HEART: Regular rate and rhythm. No murmur heard. Normal peripheral pulses. ABDOMEN: Soft, nontender, nondistended, normal active bowel sounds. EXTREMITIES: Normal range of motion. No edema. SKIN: Warm, dry, no rash. Approximately 1.5 cm linear laceration which is approximated with 5 sutures. No significant surrounding redness. No drainage. NEURO: No focal deficits. Alert and oriented x3. PSYCH: Normal mood and affect. Course Course Emergency Course: This is a 39-year-old male who presented for suture removal. Five sutures were removed. Patient tolerated well. Wound is well approximated. Triple antibiotic ointment was applied and covered in Band-Aid. Advised on wound care. Follow-up with primary provider. Go to the ER for worsening symptoms. Patient in agreement with plan of care. Level of Care: Express Care Visit Vital Signs Vital signs: Vital Signs Temperature 36.6 C 03/23/25 08:31 Pulse Rate 75 03/23/25 08:31 Respiratory Rate 18 03/23/25 08:31 Blood Pressure 150/84 H 03/23/25 08:31 Pulse Oximetry 100 03/23/25 08:31 Oxygen Delivery Room Air 03/23/25 08:31 Temperature 36.6 C 03/23/25 08:31 Pulse Rate 75 03/23/25 08:31 Respiratory Rate 18 03/23/25 08:31 Blood Pressure 150/84 H 03/23/25 08:31 Pulse Oximetry 100 03/23/25 08:31 Oxygen Delivery Room Air 03/23/25 08:31 Medical Decision Making Vital Signs Vital Signs: Vital Signs Temperature 36.6 C 03/23/25 08:31 Pulse Rate 75 03/23/25 08:31 Respiratory Rate 18 03/23/25 08:31 Blood Pressure 150/84 H 03/23/25 08:31 Pulse Oximetry 100 03/23/25 08:31 Oxygen Delivery Room Air 03/23/25 08:31 Temperature 36.6 C 03/23/25 08:31 Pulse Rate 75 03/23/25 08:31 Respiratory Rate 18 03/23/25 08:31 Blood Pressure 150/84 H 03/23/25 08:31 Pulse Oximetry 100 03/23/25 08:31 Oxygen Delivery Room Air 03/23/25 08:31 Discharge Plan Discharge Clinical Impression: Visit for suture removal Patient Disposition: Home Condition: Stable Instructions: Antibiotic Form, Stitches Removal (ED) Patient Language: Divehi Prescriptions: No Action buspirone 15 mg tablet cephalexin 500 mg capsule 500 mg PO Q12H 7 Days Qty: 14 0RF escitalopram oxalate 20 mg tablet Follow-up/Referrals: Sophia Butts [Other] Time of Disposition: 08:50
== END 2025-03-23 08:51 | disposition home or self-care (01) ==
PROVIDERS: Emergency Provider Nurse Practitioner
DX: S61.412D Laceration without foreign body of left hand, subsequent encounter (principal); W27.1XXD Contact with garden tool, subsequent encounter
CPT/HCPCS: 99211; G0463